=== PATIENT | female | born 1965 | race Caucasian/White ===

== ENCOUNTER → 2018-04-06 | Outpatient (CLI) | payer BC ==
[2018-04-06 09:49] LABS: Basophils % (A) 1 %; Eosinophils # (A) 0.1 k/uL (0-0.7); Eosinophils % (A) 2 %; HCT 48.8 % (34.0-46.0); HGB 16.7 gm/dL (11.4-16.0); Lymphocytes # (A) 1.4 k/uL (1.0-4.8); Lymphocytes % (A) 23 %; MCH 32.6 pg (25.0-35.0); MCHC 34.2 g/dL (31.0-37.0); MCV 95.2 fL (80.0-100.0); Monocytes # (A) 0.4 k/uL (0-1.0); Monocytes % (A) 7 %; Neutrophils # (A) 3.8 k/uL (1.3-7.7); Neutrophils % (A) 64 %; Platelet Count 169 k/uL (150-450); RBC 5.12 m/uL (3.80-5.40); RDW 12.8 % (11.5-15.5); WBC 5.9 k/uL (3.8-10.6)
[2018-04-06 09:51] LABS: ALT 47 U/L (9-52); AST 30 U/L (14-36); Albumin 4.7 g/dL (3.5-5.0); Alkaline Phosphatase 87 U/L (38-126); Anion Gap 14 mmol/L; Blood Urea Nitrogen 18 mg/dL (7-17); Calcium 10.2 mg/dL (8.4-10.2); Carbon Dioxide 29 mmol/L (22-30); Chloride 103 mmol/L (98-107); Cholesterol 216 mg/dL (<200); Glucose 107 mg/dL (74-99); HDL Cholesterol 32 mg/dL (40-60); LDL Cholesterol,Calculated 119 mg/dL (0-99); Magnesium 2.1 mg/dL (1.6-2.3); Potassium 5.6 mmol/L (3.5-5.1); Sodium 146 mmol/L (137-145); Total Bilirubin 0.7 mg/dL (0.2-1.3); Total Protein 7.4 g/dL (6.3-8.2); Triglycerides 327 mg/dL (<150)
== END | disposition home or self-care (01) ==
LOC: LABWHC1 09:01
PROVIDERS: ATTEND Family Medicine
DX: I10 Essential (primary) hypertension (principal); R53.83 Other fatigue
CPT/HCPCS: 36415; 80053; 80061; 83735; 84443; 85025

== ENCOUNTER → 2020-08-02 | Outpatient (CLI) | payer BC ==
--- NOTE | 2020-08-05 08:57 | MM ---
Reason for exam: screening (asymptomatic). Last mammogram was performed 4 years and 4 months ago. History: Patient is postmenopausal. Family history of breast cancer in 2 paternal aunts. Took hormonal contraceptives for 2 years. Physical Findings: A clinical breast exam by your physician is recommended on an annual basis and results should be correlated with mammographic findings. MG 3D Screening Mammo W/Cad Bilateral CC and MLO view(s) were taken. Prior study comparison: March 26, 2016, bilateral MG screening mammo w CAD. January 22, 2015, bilateral MG screening mammo w CAD. There are scattered fibroglandular densities. Bilateral calcifications. No significant changes when compared with prior studies. ASSESSMENT: Benign, BI-RAD 2 RECOMMENDATION: Routine screening mammogram of both breasts in 1 year.
== END | disposition home or self-care (01) ==
LOC: RADMAMWWP 07:20
PROVIDERS: ATTEND Family Medicine
DX: Z12.31 Encounter for screening mammogram for malignant neoplasm of breast (principal); Z80.3 Family history of malignant neoplasm of breast
CPT/HCPCS: 77063; 77067